=== PATIENT | female | born 1995 | race Caucasian/White ===

== ENCOUNTER 2017-03-02 19:52 | Emergency (ER) | payer BC ==
--- NOTE | 2017-03-02 20:54 | UC ---
Throat Pain/Nasal Jonnathan HPI - HPI Summary HPI Summary: ST, nasal congestion, cough, achy, and chills with elevated temps starting 5 days ago. Cough is getting worse, feeling lots of congestion in her nose and sinuses. Denies recent fevers or trouble breathing. - History of Current Complaint Chief Complaint: UCRespiratory Stated Complaint: SORE THROAT Time Seen by Provider: 03/02/17 20:39 Hx Obtained From: Patient Hx Last Menstrual Period: 3 weeks ago ?: No Onset/Duration: Gradual Onset, Lasting Days Severity: Moderate Cough: Productive Associated Signs & Symptoms: Positive: Sinus Discomfort, Nasal Discharge. Negative: Vomiting, Rash - Allergies/Home Medications Allergies/Adverse Reactions: Allergies Allergy/AdvReac Type Severity Reaction Status Date / Time Seasonal Allergies Allergy Congestion Uncoded 03/02/17 20:15 Home Medications: Home Medications PARoxetine HCL TAB* [Paxil TAB*] 30 mg PO DAILY 03/02/17 [History Confirmed ] Rizatriptan Benzoate [Maxalt-Grip Assembler] 1 tab PO SEE INSTRUCTIONS PRN 03/02/17 [ History Confirmed 03/02/17] buPROPion TAB* [Wellbutrin TAB*] 1 tab PO DAILY 03/02/17 [History Confirmed ] PMH/Surg Hx/FS Hx/Imm Hx Endocrine History Of: Denies: Diabetes, Thyroid Disease Cardiovascular History Of: Denies: Cardiac Disorders, Hypertension Respiratory History Of: Denies: COPD, Asthma GI/ History Of: Denies: Ulcer - Surgical History Surgical History: None - Family History Known Family History: Negative: Blood Disorder - Social History Occupation: Student Lives: Alone Alcohol Use: None Substance Use Type: None Smoking Status (MU): Never Smoked Tobacco Review of Systems Constitutional: Chills, Fatigue Skin: Negative Eyes: Negative ENT: Sore Throat, Nasal Discharge Respiratory: Cough Cardiovascular: Negative Gastrointestinal: Negative Genitourinary: Negative Motor: Negative Neurovascular: Negative Musculoskeletal: Negative Neurological: Negative Psychological: Negative All Other Systems Reviewed And Are Negative: Yes Physical Exam Triage Information Reviewed: Yes Appearance: Well-Appearing, No Pain Distress, Well-Nourished Vital Signs: Initial Vital Signs Temp 98.8 F 03/02/17 20:08 Pulse 97 03/02/17 20:08 Resp 18 03/02/17 20:08 BP 127/82 03/02/17 20:08 Pulse Ox 100 03/02/17 20:08 Vital Signs Reviewed: Yes Eye Exam: Normal Eyes: Positive: Conjunctiva Clear ENT: Positive: Hearing grossly normal, Pharynx normal, Nasal congestion, TMs normal. Negative: Tonsillar swelling, Tonsillar exudate Dental Exam: Normal Neck exam: Normal Neck: Positive: Supple, Nontender, No Lymphadenopathy Respiratory Exam: Other - occ coughing Respiratory: Positive: Chest non-tender, Lungs clear, Normal breath sounds, No respiratory distress, No accessory muscle use Cardiovascular Exam: Normal Cardiovascular: Positive: RRR - high 90s, No Murmur Musculoskeletal Exam: Normal Neurological Exam: Normal Neurological: Positive: Alert Psychological Exam: Normal Skin Exam: Normal Throat Pain/Nasal Course/Dx - Differential Dx/Diagnosis Provider Diagnoses: URI, likely viral Discharge - Discharge Plan Condition: Stable Disposition: HOME Patient Education Materials: Upper Respiratory Infection (ED) Referrals: No Primary Care Phys,NOPCP [Primary Care Provider] - Additional Instructions: Try using the inhaler you used last year; this might help with any chest tightness or wheezing you develop. Call or return if you develop increasing fever, shortness of breath, chest pain , bloody sputum, or otherwise worsen. If you have not improved at all after several days, contact your primary care physician or return here.
== END 2017-03-02 20:57 | disposition home or self-care (01) ==
LOC: UCEAST 19:52
DX: J06.9 Acute upper respiratory infection, unspecified (principal)
CPT/HCPCS: 99201; G0463

== ENCOUNTER 2017-07-16 12:24 | Emergency (ER) | payer BC ==
[2017-07-16 12:31] VITALS: BP 108/84
--- NOTE | 2017-07-16 13:33 | UC ---
Ear Complaint HPI - HPI Summary HPI Summary: Patient presents to the with left ear fullness, dizziness intermittently, hearing loss x 3 weeks. She also notes to tingling in the right cheek intermittently. She was seen by her PCP who placed her on sudafed for fluid in the ear. No discharge or trauma to the ear. No mastoid tenderness. She states the symptoms did not improve. She then started to use swimmers ear which helped for about 1 week, then symptoms returned despite the medications. She has never had ear tubes placed. She was encouraged to follow up with ENT, but moved to [place] for college and did not follow up. She would like a referral today. - History of Current Complaint Chief Complaint: UCEar Stated Complaint: EAR PAIN Time Seen by Provider: 07/16/17 12:43 Hx Obtained From: Patient Hx Last Menstrual Period: 07/16/17 ?: No Onset/Duration: Sudden Onset Severity Initially: Moderate Severity Currently: Moderate Pain Intensity: 2 Pain Scale Used: 0-10 Numeric Alleviating Factors: Nothing Associated Signs/Symptoms: Positive: Hearing Loss, Foreign Body Sensation - Allergies/Home Medications Allergies/Adverse Reactions: Allergies Allergy/AdvReac Type Severity Reaction Status Date / Time Seasonal Allergies Allergy Congestion Uncoded 07/16/17 12:32 PMH/Surg Hx/FS Hx/Imm Hx Previously Healthy: Yes - Surgical History Surgical History: None - Family History Known Family History: Negative: Blood Disorder - Social History Occupation: Student Lives: Dormitory/Roommates Alcohol Use: None Substance Use Type: None Smoking Status (MU): Never Smoked Tobacco Review of Systems Constitutional: Negative Skin: Negative ENT: Ear Ache - ear fullness and hearing loss of the left ear Respiratory: Negative Cardiovascular: Negative Motor: Negative Neurovascular: Negative Neurological: Negative Psychological: Negative Is Patient Immunocompromised?: No All Other Systems Reviewed And Are Negative: Yes Physical Exam Triage Information Reviewed: Yes Appearance: Well-Appearing, Well-Nourished Vital Signs: Initial Vital Signs Temp 98.1 F 07/16/17 12:25 Pulse 85 07/16/17 12:25 Resp 16 07/16/17 12:25 BP 108/84 07/16/17 12:25 Pulse Ox 100 07/16/17 12:25 Vital Signs Reviewed: Yes Eye Exam: Normal Eyes: Positive: Conjunctiva Clear ENT: Positive: TMs normal - no drainage or effusions noted Dental Exam: Normal Neck exam: Normal Neck: Positive: Supple, No Lymphadenopathy Respiratory Exam: Normal Respiratory: Positive: Chest non-tender, Lungs clear Cardiovascular Exam: Normal Cardiovascular: Positive: RRR Musculoskeletal Exam: Normal Musculoskeletal: Positive: Strength Intact Neurological Exam: Normal Neurological: Positive: Alert Psychological: Positive: Normal Response To Family, Age Appropriate Behavior Skin Exam: Normal Ear Complaint Course/Dx - Course Course Of Treatment: ear fullness and hearing loss of the left ear. no effusions seen. no mastoid tenderness. no cerumen buildup. Based off his symptoms, this could be new onset meniere's. steroid given for 5 days, but deferred any diuretics until follow up with Dr. Ahn's office for further evaluation. She is OK with plan and discharge. - Differential Dx/Diagnosis Differential Diagnosis/HQI/PQRI: Mastoiditis, Otitis Externa, Otitis [place] Provider Diagnoses: New Onset Hearing Loss Discharge - Discharge Plan Condition: Stable Disposition: HOME Prescriptions: Meclizine TAB* [Antivert 12.5 TAB*] 12.5 mg PO TID #15 tab predniSONE TAB* [Deltasone TAB*] 50 mg PO DAILY #5 tab MDD 1 Patient Education Materials: Meniere Disease (ED) Referrals: Jeet Ahn MD [Medical Doctor] - No Primary Care Phys,NOPCP [Primary Care Provider] - Raheel Castro MD [Medical Doctor] - Additional Instructions: Follow up with Dr. Ahn I am not diagnosing you with meniere's, however I wanted to give you a handout on what we have discussed Prednisone 50mg daily in the mornings
== END 2017-07-16 13:35 | disposition home or self-care (01) ==
LOC: UCEAST 12:24
DX: H91.92 Unspecified hearing loss, left ear (principal)
CPT/HCPCS: 99212; G0463